=== PATIENT | male | born 1980 | race Caucasian/White ===

== ENCOUNTER 2020-09-13 13:10 | Emergency (ER) | payer OTHER, SELFPAY ==
--- NOTE | ~2020-09-13 | CT_ITS ---
EXAMINATION: CT HEAD WITHOUT CONTRAST CLINICAL INFORMATION: Found unconscious. COMPARISON: None TECHNIQUE: Contiguous axial imaging was performed from the skull base to vertex without intravenous administration of contrast. This CT examination was performed using dose optimization techniques as appropriate, variously including the following: *Automated exposure control *Adjustment of mA and/or kV according to patient size (this includes techniques or standardized protocols for targeted exams where dose is matched to indication/reason for exam; i.e. extremities or head) *Use of iterative reconstruction technique DLP: 1592 mGy-cm FINDINGS: There is no evidence of acute intracranial hemorrhage or territorial infarction. No abnormal mass effect or midline shift is seen. Rider to white matter differentiation is well preserved. No extra-axial fluid collections are identified. The ventricles are normal in size. There is no abnormal attenuation within the brain parenchyma. The osseous structures and soft tissues are normal. There are bilateral maxillary sinus polyps or retention cyst. Rest of the paranasal sinuses and mastoid air cells are well-aerated. CT/CT head/brain wo con IMPRESSION: No acute intracranial process seen. Results were discussed with Dr. Yudy Ortega by phone at 2:20 PM
--- NOTE | ~2020-09-13 | XR_ITS ---
EXAMINATION: XR CHEST CLINICAL INFORMATION: Post intubation COMPARISON: None TECHNIQUE: AP portable view of the chest was obtained. FINDINGS: Endotracheal tube tip lies approximately 2.5 cm above the naty. No acute parenchymal disease, pneumothorax, or pleural effusion. Heart normal size. No evidence of pulmonary edema. XR/XR chest 1V IMPRESSION: Endotracheal tube tip approximately 2.5 cm above the naty. No acute disease.
--- NOTE | ~2020-09-13 | CT_ITS ---
EXAMINATION: CT CERVICAL SPINE WITHOUT CONTRAST CLINICAL INFORMATION: Found unconscious COMPARISON: None TECHNIQUE: 3 mm thin axial and 2 mm thin sagittal and coronal images of cervical spine were obtained. This CT examination was performed using dose optimization techniques as appropriate, variously including the following: *Automated exposure control *Adjustment of mA and/or kV according to patient size (this includes techniques or standardized protocols for targeted exams where dose is matched to indication/reason for exam; i.e. extremities or head) *Use of iterative reconstruction technique DLP: 1592 mGy-cm FINDINGS: On sagittal reconstructed images there is maintained cervical lordosis with loss of C5-C6 and C6-C7 disc heights with moderate ventral and posterior spondylosis. Rest of the disc heights, vertebral heights and craniovertebral junction is normal. The C1-C2 alignment is normal. No visible acute fracture, dislocation or subluxation seen. There is a small polyp or retention cyst left sphenoid sinus with mucoperiosteal thickening. There is endotracheal tube noted with its tip not in the [id number]. There are bilateral upper lobe consolidations. CT/CT cervical spine wo con IMPRESSION: No visible acute fracture, dislocation or subluxation. Incidental findings of bilateral upper lobe infiltrates right greater than left. ? Covid inflammation There is an endotracheal tube with its tip not seen on this cervical spine CT. Results were conveyed to Geno MERINO by phone at 2:25 PM
--- NOTE | 2020-09-13 13:27 | ED_ITS ---
HPI - CPR General Chief Complaint: Cardiac Arrest/CPR Stated Complaint: CARDIAC ARREST Time Seen by Provider: 09/13/20 13:27 Source: EMS Mode of arrival: EMS Limitations: other (unable to obtain due to ongoing CPR) History of Present Illness MD complaint: found unresponsive (was mowing his lawn and found down ) Onset (ago): minute(s) (EMS reports probably 40 min prehospital time) Place: home Bystander CPR performed: Yes AED applied by bystander/wrap yarn sorter: Yes Shock advised: Yes Number of shocks delivered: >3 (6 total prehospital ) Initial findings in the field: unresponsive, no pulse, VTACH/VFIB and PEA ROSC in the field: No Treatments prior to arrival: other airway device (trino airway but sats only 74% on arrival to ED), chest compressions, defibrillated shocks # (6), epinephrine mgs # (5), amiodarone (300mg amio 150mg) and spinal immobilization Related Data Allergies Allergy/AdvReac Type Severity Reaction Status Date / Time No Known Allergies Allergy Verified 09/13/20 13:27 Review of Systems Review of Systems: ROS unable to be obtained due to unresponsive [facility] Past Medical History Source: unable to obtain (ongoing CPR now in our system) Medical History (Updated 09/13/20 @ 14:17 by Yudy Otrega DO) Diverticulitis Social History Social History (Updated 09/13/20 @ 14:17 by Yudy Ortega DO) Alcohol intake: current Smoking Status: Current every day smoker Advance Directives: No Advance Directives Information Provided: No Physical Exam Vital Signs: Vital Signs: Body Mass Index 30.7 Appearance: Mottled pale ongoing CPR unresponsive Eyes: 4mm fixed and dilated pupils ENT: no obvious trauma, in cervical collar Neck: Normal inspection. Neck supple. CVS: mottled no spontaneous heart sounds no pulses Respiratory: No spontaneous respirations Breath sounds diminished throughout Abdomen: Soft and no trauma noted Skin: Skin pale and mottled cool to touch. Extremities: No lower extremity edema. Neuro: unresponsive, no response to painful stimuli Course Course Course Narrative: sats with Trino Airway during CPR 74%, removed airway bagged up to 85%, 50mg rocuronium given due to jaw being tight and unable to open intubated at 1 attempt stat call to [facility] 1327 given vfib arrest and anterior wall MT on ECG 1336 call back from [facility] - send over ECG, aware we lost pulses again 1342 accepted to CCU by Dr. Rasmussen not laboratory clerk aware of ECG, heparin gtt ordered bed available transport arriving [address] and cspine ordered, KS aspirin and heparin gtt ordered PARTNER AT BEDSIDE - PATIENT HAS BEEN COMPLAINING OF CHEST PAIN AT NIGHT RECENTLY Procedures Intubation Time out performed: Yes paralytic: Rocuronium (50mg patient was clamped down) Laryngoscope: fiber optic video scope ET Tube Size: 8 Tube Secured Depth (cm): 23 Tube Secured Location: teeth Tube Placement Confirmation: visualized tube passing through cords, equal breath sounds bilaterally and confirmation by capnometry Patient Tolerated Procedure: well Intubation Complications: none MDM - Cardiac Arrest/CPR MDM Narrative Medical decision making narrative: 40 yo male with no known PMH - was mowing lawn found down bystanders thought he was seizing - PD found pulseless, shock advised, EMS trino airway, 5 epi, BS > 100, 5 shocks, amio 300 and amio 150 given, sats on trino airway 75% on arrival removed trino airway bagged to 85% and intubated patient, lost pulses x 2 initial PE given epi/HCO3, 2nd loss of pulses 200J shocked and epi ROSC sats > 90% after intubation, pupils fixed and dilated ECG concerning for STEMI stat call to [facility] for transfer Lab Data Labs: Lab Results 09/13/20 Range/Units 13:25 COVID-19 (LISETH) Negative (Negative) COVID-19 Clin Com See Note ECG Data Attestation: I personally reviewed and interpreted this ECG as follows: Interpretation: Rate: 112 Rhythm: sinus tachycardia [place]: normal Normal P waves. Normal ALEXUS. wide QRS complex. ST T wave : ST elevation in anterior leads qTC: prolonged prior studies: no prior The study has been interpreted contemporaneously by me. . Critical Care Time Critical Care Time Critical Care Time: Yes Total Critical Care Time: 60 Attestation: CPR< family discussion, consult, transfer to tertiary care center I attest to this time spent taking care of the patient Discharge Plan Discharge Clinical Impression: Cardiac arrest Acute myocardial infarction Qualifiers: Myocardial infarction type: ST elevation myocardial infarction Involved coronary artery: LAD coronary artery Qualified Code(s): I21.02 - ST elevation (STEMI) myocardial infarction involving left anterior descending coronary artery Patient Disposition: Xfer Acute [facility] Transfer Details: [facility] Interventions: Acute Care Transfer Worksheet (ED) Last Done: 09/13/20 14:55 Discharge Date/Time: 09/13/20 14:55
--- NOTE | 2020-09-13 13:28 | ECG_ITS ---
Test Reason : CARIAC ARREST Blood Pressure : / mmHG Vent. Rate : 112 BPM Atrial Rate : 112 BPM P-R Int : 130 ms QRS Dur : 124 ms QT Int : 384 ms P-R-T Axes : -09 075 -16 degrees QTc Int : 524 ms Sinus tachycardia Anteroseptal infarct , possibly acute Inferolateral injury pattern ACUTE SC / STEMI Abnormal ECG No previous ECGs available Referred By: Yudy Ortega Electronically Signed By:WILBER GUPTA
[2020-09-13 13:49] VITALS: BMI 30.7
[2020-09-13 13:49] LABS: COVID-19 Test Negative (Negative); IDNOW Serial# 9DD0AD1C
[2020-09-13 13:57] VITALS: BP 152/105; PULSE 116; O2SAT 96
[2020-09-13] MEDS: Heparin Sodium,Porcine/1/2NS 25,000 UNIT/250 ML IV.SOLN 10 UNIT IVCONT (14:20)
[2020-09-13] MEDS: Aspirin 300 MG SUPP.RECT PR (14:23)
[2020-09-13] MEDS: Rocuronium Bromide 50 MG/5 ML VIAL IVPUSH (14:54)
[2020-09-13] MEDS: Amiodarone HCL 900 MG in 0.9 % Sodium Chloride 500 ML 34.53 MG IVCONT (14:54)
[2020-09-14 08:06] LABS: Glucose, Whole Blood 300 mg/dL (60-115)
== END 2020-09-13 14:55 | disposition short-term general hospital (02) ==
PROVIDERS: Emergency Provider Emergency Medicine
DX: I46.9 Cardiac arrest, cause unspecified (principal); I21.02 ST elevation (STEMI) myocardial infarction involving left anterior descending coronary artery; Z20.822 Contact with and (suspected) exposure to COVID-19; F17.200 Nicotine dependence, unspecified, uncomplicated
CPT/HCPCS: 31500; 36415; 70450; 71045; 72125; 82947; 87635; 93005; 94002; 94003; 96361; 96374; 99285; 99291; J0171; J0282